=== PATIENT | male | born 1950 | race Caucasian/White ===

== ENCOUNTER 2018-02-06 09:44 | Day surgery (SDC) | payer OTHER ==
[~2018-02-06] VITALS: Ht 188 cm; Wt 118.0 kg
[~2018-02-06 09:44] MED LIST: ALBU90OI6 INH; ASPI325; ATOR40TA PO; CARB200ER PO; CLOP75 PO; Flomax0.4 MG PO; Hydrocodone-Ap1 EA20 PO; METO25ER PO; Norco 10-325 T1 EACH PO; PANT40 PO; Protonix40 MG PO; RANI150EL PO; Ranitidine HCl300 M1 PO; TAMS.4ER PO
== END 2018-02-06 22:35 | disposition home or self-care (01) ==
LOC: MHTC 09:44 → ICUW 14:53 → ICUE 15:34 → MHTC 22:35
PROC: 037Y3DZ Dilation of Upper Artery with Intraluminal Device, Percutaneous Approach (ICD-10-PCS; principal; 2018-02-06)
DX: T82.856A Stenosis of peripheral vascular stent, initial encounter (principal); I70.218 Atherosclerosis of native arteries of extremities with intermittent claudication, other extremity; I70.92 Chronic total occlusion of artery of the extremities
CPT/HCPCS: 36221; 37236; 75710; 76937; 85347; 99152; 99153; C1725; C1769; C1876; C1887; C1894; J1644; J2250; J2270; J2720; J3010; J7030; J7040; Q9967

== ENCOUNTER 2021-02-03 16:29 | Emergency (ER) | payer OTHER ==
[~2021-02-03] VITALS: Ht 188 cm; Wt 129.3 kg
[~2021-02-03 16:29] MED LIST changes: +ALFU10; +Aspir 8181 MG PO; +FINA5 PO
[2021-02-03 17:42] LABS: BASOPHILS ABSOLUTE AUTO 0.02 K/mm3 (0.00-0.23); BASOPHILS PERCENT AUTO 1 % (0-2); EOSINOPHILS PERCENT AUTO 3 % (0-6); Hematocrit 41.3 % (37.0-53.0); Hemoglobin 14.4 g/dL (13.5-17.5); IMMATURE GRAN ABSOLUTE AUTO 0.01 K/mm3 (0.00-0.10); IMMATURE GRAN PERCENT AUTO 0 % (0-1); LYMPHOCYTES ABSOLUTE AUTO 1.02 K/mm3 (0.84-5.20); LYMPHOCYTES PERCENT AUTO 28 % (21-46); MONOCYTES ABSOLUTE AUTO 0.38 K/mm3 (0.16-1.47); MONOCYTES PERCENT AUTO 11 % (4-13); Mean Corpuscular HGB 32.7 pg (26.0-34.0); Mean Corpuscular HGB Conc 34.9 g/dL (31.5-36.5); Mean Corpuscular Volume 94 fL (80-100); Mean Platelet Volume 9.7 fL (9.1-12.4); NEUTROPHILS ABSOLUTE AUTO 2.08 K/mm3 (1.96-9.15); NEUTROPHILS PERCENT AUTO 58 % (41-73); Platelet Count 159 K/mm3 (150-400); RDW Coefficient Variation 13.6 % (11.7-14.2); RDW Standard Deviation 46.6 fL (35.1-46.3); Red Blood Cell Count 4.41 M/mm3 (4.30-5.90); White Blood Cell Count 3.61 K/mm3 (4.00-11.30)
[2021-02-03 17:58] LABS: Alanine Aminotransfer (ALT/SGP 92 U/L (12-78); Albumin/Globulin Ratio 1.3 (0.8-1.8); Alk Phos 55 U/L (50-136); Anion Gap 8 mmol/L (6-16); Aspartate Aminotrans (AST/SGOT 59 U/L (12-37); Bilirubin, Total 0.4 mg/dL (0.1-1.0); Blood Urea Nitrogen 17 mg/dL (8-24); Bun/Creatinine Ratio 16.8 (12.0-20.0); CO2, Blood 24 mmol/L (21-32); Calcium, Blood 8.7 mg/dL (8.5-10.1); Chloride, Blood 103 mmol/L (98-108); Creatinine, Blood 1.01 mg/dL (0.60-1.20); Glomerular Filtration Rate >60 (60-); Glucose, Blood 112 mg/dL (70-99); Potassium, Blood 4.2 mmol/L (3.5-5.5); Sodium, Blood 135 mmol/L (136-145); Troponin I <0.015 ng/mL (0.000-0.040)
== END 2021-02-03 18:28 | disposition home or self-care (01) ==
LOC: ER 16:29
PROVIDERS: Emergency Medicine
DX: R07.89 Other chest pain (principal); R06.02 Shortness of breath; R11.0 Nausea; R20.0 Anesthesia of skin; E78.00 Pure hypercholesterolemia, unspecified; I25.10 Atherosclerotic heart disease of native coronary artery without angina pectoris; E11.9 Type 2 diabetes mellitus without complications; F17.210 Nicotine dependence, cigarettes, uncomplicated; Z88.0 Allergy status to penicillin; Z79.899 Other long term (current) drug therapy; Z85.46 Personal history of malignant neoplasm of prostate; Z95.5 Presence of coronary angioplasty implant and graft
CPT/HCPCS: 36415; 71045; 80053; 84484; 85025; 93005; 93010; 99285-25; A9270

== ENCOUNTER 2021-10-08 22:46 | Emergency (ER) | payer OTHER ==
[~2021-10-08] VITALS: Ht 188 cm; Wt 111.1 kg
== END 2021-10-09 02:31 | disposition home or self-care (01) ==
LOC: ER 22:46
DX: T84.020A Dislocation of internal right hip prosthesis, initial encounter (principal); W18.12XA Fall from or off toilet with subsequent striking against object, initial encounter; Z88.0 Allergy status to penicillin; Z79.899 Other long term (current) drug therapy; E78.5 Hyperlipidemia, unspecified; E11.9 Type 2 diabetes mellitus without complications; J44.9 Chronic obstructive pulmonary disease, unspecified; F17.210 Nicotine dependence, cigarettes, uncomplicated
CPT/HCPCS: 27250; 27266; 73502; 73590; 96374; 96375; 99152; 99284-25; A9270; J1170; J2405; J2704; J7030

== ENCOUNTER 2023-05-28 11:30 | Emergency (ER) | payer OTHER ==
[~2023-05-28] VITALS: Ht 188 cm; Wt 120.2 kg
[2023-05-28 11:32] VITALS: BP 126/79
== END 2023-05-28 11:51 | disposition home or self-care (01) ==
LOC: ER 11:30
DX: T83.031A Leakage of indwelling urethral catheter, initial encounter (principal); Y84.6 Urinary catheterization as the cause of abnormal reaction of the patient, or of later complication, without mention of misadventure at the time of the procedure; F17.210 Nicotine dependence, cigarettes, uncomplicated; Z88.0 Allergy status to penicillin; Z79.899 Other long term (current) drug therapy
CPT/HCPCS: 99283

== ENCOUNTER 2023-12-13 12:17 | Inpatient (IN) | payer OTHER ==
[2023-12-13] VITALS (8 sets, daily range): BP systolic 99–122; BP diastolic 65–92
[~2023-12-13] VITALS: Ht 188 cm; Wt 120.8 kg
[~2023-12-13 12:17] MED LIST changes: -ALFU10; +ALFU10 PO
[2023-12-13 12:35] LABS: BASOPHILS ABSOLUTE AUTO 0.02 K/mm3 (0.00-0.23); BASOPHILS PERCENT AUTO 0 % (0-2); EOSINOPHILS PERCENT AUTO 0 % (0-6); Hematocrit 37.2 % (37.0-53.0); Hemoglobin 12.7 g/dL (13.5-17.5); IMMATURE GRAN ABSOLUTE AUTO 0.02 K/mm3 (0.00-0.10); IMMATURE GRAN PERCENT AUTO 0 % (0-1); LYMPHOCYTES ABSOLUTE AUTO 0.68 K/mm3 (0.84-5.20); LYMPHOCYTES PERCENT AUTO 12 % (21-46); MONOCYTES ABSOLUTE AUTO 0.58 K/mm3 (0.16-1.47); MONOCYTES PERCENT AUTO 10 % (4-13); Mean Corpuscular HGB 31.9 pg (26.0-34.0); Mean Corpuscular HGB Conc 34.1 g/dL (31.5-36.5); Mean Corpuscular Volume 94 fL (80-100); Mean Platelet Volume 9.6 fL (9.1-12.4); NEUTROPHILS ABSOLUTE AUTO 4.38 K/mm3 (1.96-9.15); NEUTROPHILS PERCENT AUTO 77 % (41-73); Platelet Count 165 K/mm3 (150-400); RDW Coefficient Variation 13.4 % (11.7-14.2); RDW Standard Deviation 46.1 fL (35.1-46.3); Red Blood Cell Count 3.98 M/mm3 (4.30-5.90); White Blood Cell Count 5.68 K/mm3 (4.00-11.30)
[2023-12-13] MEDS ORDERED: Diltiazem HCl 5 MG / ML 5ML Vial IV ONE ×2 (12:40→13:10)
[2023-12-13] MEDS ORDERED: FOLI1 PO (12:57)
[2023-12-13] MEDS ORDERED: ALBU2.5V5 INH (12:57)
[2023-12-13] MEDS ORDERED: PANT20 PO (12:57)
[2023-12-13] MEDS ORDERED: ALOGLIPTIN6.25 M1 PO (12:57)
[2023-12-13] MEDS ORDERED: METF500 PO (12:58)
[2023-12-13] MEDS ORDERED: FLUT1DIS5 (12:58)
[2023-12-13] MEDS ORDERED: Cyclobenzaprine5 MG (12:58)
[2023-12-13] MEDS ORDERED: B12-FOLIC ACID1 EACH PO (12:58)
[2023-12-13] MEDS ORDERED: BASAGLAR K100 UNIT/1 SC (12:59)
[2023-12-13 13:11] LABS: Albumin, Blood 3.4 g/dL (3.4-5.0); Albumin/Globulin Ratio 0.9 (0.8-1.8); Bilirubin, Total 0.6 mg/dL (0.1-1.0); Bun/Creatinine Ratio 15.3 (12.0-20.0); Calcium, Blood 9.1 mg/dL (8.5-10.1); Creatinine, Blood 1.11 mg/dL (0.60-1.20); Globulin, Blood 3.6 g/dL (2.2-4.0); Potassium, Blood 4.1 mmol/L (3.5-5.5)
[2023-12-13] MEDS ORDERED: dilTIAZem HCL 125 MG in Dextrose 5% 100 ML IV SCH (14:15)
[2023-12-13 14:31] LABS: Influenza A, PCR NEGATIVE (NEGATIVE); Influenza B, PCR NEGATIVE (NEGATIVE); Resp Syncytial Virus, PCR NEGATIVE (NEGATIVE)
[2023-12-13 14:32] LABS: SARS-Cov-2 (COVID-19) PCR, MMC POSITIVE (NEGATIVE)
[2023-12-13] MEDS ORDERED: Acetaminophen 325 MG TABLET PO PRN (14:40)
[2023-12-13] MEDS ORDERED: Furosemide 10 MG/ML 4ML Vial IV SCH (15:00)
[2023-12-13] MEDS ORDERED: Remdesivir (EUA) 200 MG in NS 250 ML IV ONE (15:15)
[2023-12-13] MEDS ORDERED: Albuterol 2.5 MG/3 ML VIAL INH PRN (15:20)
[2023-12-13] MEDS ORDERED: Metoprolol Succinate 25 MG TABCR PO SCH (16:00)
[2023-12-13] MEDS ORDERED: Dexamethasone Sod Phos 10 MG/ML 1ML VIAL IV SCH (16:00)
[2023-12-13] MEDS ORDERED: Insulin Human Lispro 100 Units/ML 3ML Syringe SC SCH (16:30)
[2023-12-13] MEDS ORDERED: Apixaban 5 MG Tab PO SCH (21:00)
[2023-12-13] MEDS ORDERED: Insulin Glargine-Yfgn 100 Unit/mL 3 ML SYR SC SCH ×2 (21:00)
[2023-12-14] VITALS (15 sets, daily range): BP systolic 99–141; BP diastolic 65–96
[2023-12-14] MEDS ORDERED: CELE100 PO (00:15)
[2023-12-14] MEDS ORDERED: Percocet 5-3251 EACH PO (00:15)
[2023-12-14] MEDS ORDERED: OCUFLOX511 (00:19)
[2023-12-14] MEDS ORDERED: PREDNISOLONE ACE5 ML (00:19)
[2023-12-14] MEDS ORDERED: KETO.5OPSO (00:20)
[2023-12-14] MEDS ORDERED: TRAM50 PO (00:27)
[2023-12-14] MEDS ORDERED: DOC250 PO (00:33)
[2023-12-14] MEDS ORDERED: METAMUCIL POWD798 GM PO (00:33)
[2023-12-14] MEDS ORDERED: INSULIN AS100 UNIT/8 SC (00:34)
[2023-12-14 00:54] LABS: Base Excess Venous 1.1 mmol/L; Bicarbonate Venous 25.3 mmol/L (24.0-30.0); PCO2 Venous 39.3 mmHg (38-42); pH Blood Venous 7.42 (7.34-7.37)
[2023-12-14 01:18] LABS: Bun/Creatinine Ratio 21.1 (12.0-20.0); Calcium, Blood 8.6 mg/dL (8.5-10.1); Creatinine, Blood 1.14 mg/dL (0.60-1.20); Potassium, Blood 4.2 mmol/L (3.5-5.5)
--- NOTE | 2023-12-14 03:22 | NUR ---
2009 Pt arrived to unit from ED via jaja with RN in attendance. Ambulated with min assist to bed in roon 4. Oriented to room and unit per unit standards. Pt unsure of current medications, though brought in medications and believes them to be up to date. [facility]. Pt continues in Atrial fib, rate controlled when pt is resting though will jump into RVR with any activity. Continue to reinforce need to decrease activity. Bed alarm in use and will place Avasure camera for safety. Dilt gtt at 15mg/hr, VSS.
[2023-12-14] MEDS ORDERED: Pantoprazole Sodium 20 MG Tab PO SCH (06:00)
[2023-12-14] MEDS ORDERED: Metoprolol Tartrate 25 MG Tab PO ONE ×2 (08:40→21:30)
[2023-12-14] MEDS ORDERED: Vitamin B Complex 1 EA Softgel PO SCH (09:00)
[2023-12-14] MEDS ORDERED: Finasteride 5 MG Tab PO SCH (09:00)
[2023-12-14] MEDS ORDERED: Tamsulosin HCl 0.4 MG Cap PO SCH (09:00)
[2023-12-14] MEDS ORDERED: Metoprolol Succinate 50 MG TABCR PO SCH ×2 (09:00→22:00)
[2023-12-14] MEDS ORDERED: Folic Acid 1 MG TAB PO SCH (09:00)
[2023-12-14] MEDS ORDERED: Remdesivir (EUA) 100 MG in NS 250 ML IV SCH (12:00)
--- NOTE | 2023-12-14 18:45 | NUR ---
SHIFT SUMMARY PT A/OX3-4 AND COOPERATIVE WITH MOST CARE. PT ABLE TO EXPRESS NEEDS WHEN STAFF IS PRESENT BUT IS NOT FOLLOWING INSTRUCTIONS OF USING CALL LIGHT FOR ASSISTANCE. SITTER OUTSIDE OF ROOM ALERTS STAFF FOR ASSISTANCE. PT HR REMAINED AFIB BUT RATE HAS IMPROVED. DILT GTT ON STANDBY AT 1415. OTHER VSS THROUGHOUT SHIFT WITH 02 SATS IN THE 90'S ON 4 L NC. PT REPORTS "I FEEL LIKE I CAN'T CATCH MY BREATH SOMETIMES." THIS REMARK IS USUALLY AFTER PT WAS UP IN ROOM. PT USING URINAL AT BEDSIDE. PT FREQUENTLY REQUESTING TO HAVE BSC PLACED NEAR BED SO THAT HE CAN JUST GO TI THE COMMODE ON HIS OWN WHEN HE WANTS. PT EDUCATED THAT HE IS A FALL RISK AND INSTRUCTED TO USE CALL LIGHT FOR ASSISTANCE.
[2023-12-15 00:57] VITALS: BP 112/81
[2023-12-15 04:36] VITALS: BP 119/91
[2023-12-15 05:08] LABS: Bun/Creatinine Ratio 26.1 (12.0-20.0); Creatinine, Blood 1.11 mg/dL (0.60-1.20)
--- NOTE | 2023-12-15 05:21 | NUR ---
1915 Assumed care of pt, bedside report completed. Shift plan of care reviewed with pt, all questions answered. Pt with uneventful shift tonight. Call to MD early in shift to report uncontrolled HR. Additional dose of Lopressor 25mg PO x 1 and primary MD changed Toprol XL to BID. HR better this AM, low 100s at rest, up to 120s with activity. Pt does report feeling subjectively better this morning than yesterday AM. Non Clinical sitter has remained outside of room per hospital policy. Please see full assessment for additional details. No further complaints or concerns at this time, will continue to monitor.
[2023-12-15] MEDS ORDERED: Metoprolol Tartrate 1 MG/ML 5 ML VIAL IV ONE (08:00)
[2023-12-15] MEDS ORDERED: Metoprolol Tartrate 1 MG/ML 5 ML VIAL IV PRN (08:00)
[2023-12-15] MEDS ORDERED: Torsemide 10 MG TAB PO SCH (09:00)
[2023-12-15] MEDS ORDERED: Metoprolol Succinate 50 MG TABCR PO SCH (09:00)
[2023-12-15] MEDS ORDERED: Empagliflozin 10 MG TAB PO SCH (09:00)
[2023-12-15 11:57] VITALS: BP 112/89
--- NOTE | 2023-12-15 15:49 | NUR ---
PT HR CONTINUES TO BE TACHY. 110-120 AT REST AND 120-150 WHEN UP. PT UP TO C MULTOPLE TIMES DUE TO FREQUENT SMALL URINATIONS. PT GIVEN LOPRESSOR PUSHES PER ORDER WITH LITTLE EFFECT. MD NOTIFIED. FLOMX SWITCHED FROM DAILY TO TWICE DAILY. PT PROVIDED CONDOM CATH TO HELP PT ATTEMPT TO REST WHILE IN BED PER MD ORDER. PT BLADDER SCANNED AFTER ELIMINATION, NO URINE NOTED.
[2023-12-15 16:38] VITALS: BP 117/89
--- NOTE | 2023-12-15 17:15 | NUR ---
SHIFT SUMMARY PT A/OX4. PT COOPERATED BETTER WITH STAFF BUT STILL HAS PERIODS OF GETTING UP ON HIS OWN WITHOUT CALLING. PT'S HR GRADUALLY INCREASED DUE TO PT GETTING UP FREQUENTLY TO URINATE. PT PROVIDED CONDOM CATH PER MD REQUEST AND PT INSTRUCTED TO STAY IN BED MORE TO IMPROVE HR, PT AGREEABLE AT THIS TIME. PT RECIEVED 2 DOSES OF IV LOPRESSOR PER ORDER FOR ASSISTANCE WITH RATE CONTROL AND PO METOPROLOL INCREASED, SEE EMAR. OTHER VSS THROUGHOUT SHIFT WITH O2 SATS IN THE 90'S ON 4L NC. NO REPORT OF CHEST PAIN/PRESSURE. PT CONTINUES TO ENDORSE SOB, PT EDUCATED ON HIS LOW EF, AFIB WITH INCREASED RATE AND COVID ARE ALL CAUSING HIS SYMPTOMS. FLOMAX FREQUENCY INCREASED TO BID. PT'S SONS CALLED AND UPDATED ON PT'S CURRENT STATUS.
[2023-12-15 20:02] VITALS: BP 106/68
[2023-12-15] MEDS ORDERED: Tamsulosin HCl 0.4 MG Cap PO SCH (21:00)
[2023-12-15 23:45] VITALS: BP 116/89
[2023-12-16 03:50] VITALS: BP 115/65
[2023-12-16 04:28] LABS: Hematocrit 39.8 % (37.0-53.0); Hemoglobin 13.5 g/dL (13.5-17.5); Mean Corpuscular HGB 32.1 pg (26.0-34.0); Mean Corpuscular HGB Conc 33.9 g/dL (31.5-36.5); Mean Corpuscular Volume 95 fL (80-100); Mean Platelet Volume 10.2 fL (9.1-12.4); Platelet Count 227 K/mm3 (150-400); RDW Coefficient Variation 13.1 % (11.7-14.2); RDW Standard Deviation 44.9 fL (35.1-46.3); Red Blood Cell Count 4.21 M/mm3 (4.30-5.90); White Blood Cell Count 10.32 K/mm3 (4.00-11.30)
[2023-12-16 04:51] LABS: Bun/Creatinine Ratio 34.5 (12.0-20.0); Calcium, Blood 9.4 mg/dL (8.5-10.1); Creatinine, Blood 1.19 mg/dL (0.60-1.20); Potassium, Blood 4.1 mmol/L (3.5-5.5)
--- NOTE | 2023-12-16 05:55 | NUR ---
1915 Assumed care of pt, tony report completed. Shift plan of caer reviewed with pt, all questions answered. 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 HR slowly becoming more controlled, and other VSS thoughout shift. Pt has remained A&O x 4, complaint with care. Please see full assessment for additional details. No further complaints or concerns at this time, will continue to monitor.
[2023-12-16 07:45] VITALS: BP 137/69
[2023-12-16] MEDS ORDERED: Sacubitril/Valsartan 24 MG-26 MG Tab PO SCH (09:00)
[2023-12-16] MEDS ORDERED: Metoprolol Succinate 50 MG TABCR PO SCH (09:00)
--- NOTE | 2023-12-16 11:08 | NUR ---
1020, PT INFOMRED FRUIT RAISER THAT HE WNATED TO LEAVE. FRUIT RAISER INFORMED THIS RN OF PT'S REMARKS. THIS RN TO PT'S ROOM. PT STATED THAT HE "CAN NO LONGER JUST SIT HERE. I NEED TO GET OUT OF HERE." THIS RN INFORMED PT THAT HIS BREATHING HAS STILL BEEN AN ISSUE DUE O COVID AND THAT HIS HR WAS IN THE 170'S AT THE TIME OF THE CONVERSATION. PT ALSO INFORMED THAT HIS EF WAS REALLY LOW AND EDUCATED THAT WITH THE LOW EF, HIS HEART WAS NOT FUNCTIONING WELL. PT STATED "THATS FINE. I WILL JUST GO HOME AND REST JUST LIKE I AM HERE. I JUST CANNOT BE HERE ANYMORE." THIS RN ASKED IF PT WAS FEELING CABIN FEVER FROM BEING STUCK IN HIS ROOM. PT STATED "YEAH, I JUST HAVE TO GET OUT." THIS RN OFFERED TO ALLOW PT TO WEAR A MASK AND GO OUTSIDEFOR FEW MINUTES. PT STATED "WELL I WILL JUST GO TO GET SOME ICE CREAM OR COFFEE WITH SON AND JUST COME BACK." THIS RN INFORMED PT THAT HE COULD NOT LEAVE AND COME BACK BECAUSE THAT WOULD REQUIRE HIM TO LEAVE AMA AND BE READMITTED. PT STATES "OH SHIT, WELL I'M JUST GOING TO LEAVE THEN. I ALREADY CALLED MY SON TO GET ME AT 12:00." THIS RN ASKED IF HE WOULD LIKE TO SPEAK WITH THE DOCTOR, PT ANSWERED "YES." MD NOTIFIED AND CAME TO PT ROOM. PT EXPRESSED CONCERNS AND EDUCATED PT ON TREATMENT THAT PT STILL NEEDED. PT CONTINUED TO STATE THAT HE WANTED TO LEAVE. PT ASKED HOW HE WOULD GET OXYGEN, PT STATED "[facility] NOTIFIED PT THAT HE CAN SEND PT HOME WITH HARD SCRIPTS BUT COULD NOT SEND PHARMACY REQUESTS OUT THOUGH PT WAS BEING DISCHARGED. PT INFORMED THAT HE WOULD NEED A HOME O2 EVAL TO SEE HOW MUCH OXYGEN HE WOULD NEED TO HAVE INSURANCE COVER THE COSTS. PT STATED "NO I CAN JUST BUY OR RENT IT." PT INFORMED THAT HE WOULD NEED A MD TO STILL ORDER IT. MD INFORMED PT THAT HE COULD ORDER THE O2 IF PT COULD PAY OUT OF POCKET FOR TANKS SINCE PT DID NOT WANT TO PERFORM HOME O2 EVAL. HARD SCRIPTS PROVIDED BY . OXYGEN ORDERED BY [employer].
--- NOTE | 2023-12-16 11:48 | NUR ---
AMA DISCHARGE PT PROVIDED HARD SCRIPTS AT TIME OF DISCHARGE. O2 DELIVERED TO PT IN HIS ROOM. PT'S SON RACHANA PRESENT TO GET PT AT 1140. PT DISCHARGED AT 1145. PT INSTRUCTED TO GIVE [facility] OT [facility] AND TO FOLLOW UP WITH PCP. PT VERBALIZED UNDERSTANDING.
== END 2023-12-16 12:12 | disposition left against medical advice (07) | DRG 177 ==
LOC: ER 12:17 → PCU 19:40
PROVIDERS: Emergency Medicine; Family Medicine Adult Medicine; ADMIT Internal Medicine
PROC: XW033E5 Introduction of Remdesivir Anti-infective into Peripheral Vein, Percutaneous Approach, New Technology Group 5 (ICD-10-PCS; principal; 2023-12-13)
PROC: 3E0333Z Introduction of Anti-inflammatory into Peripheral Vein, Percutaneous Approach (ICD-10-PCS; 2023-12-13)
DX: U07.1 COVID-19 (principal); I50.21 Acute systolic (congestive) heart failure; J12.82 Pneumonia due to coronavirus disease 2019; J96.01 Acute respiratory failure with hypoxia; J44.0 Chronic obstructive pulmonary disease with (acute) lower respiratory infection; I25.10 Atherosclerotic heart disease of native coronary artery without angina pectoris; I11.0 Hypertensive heart disease with heart failure; E11.9 Type 2 diabetes mellitus without complications; I48.91 Unspecified atrial fibrillation; E78.5 Hyperlipidemia, unspecified; C61 Malignant neoplasm of prostate; F17.210 Nicotine dependence, cigarettes, uncomplicated; H91.90 Unspecified hearing loss, unspecified ear; Z53.29 Procedure and treatment not carried out because of patient's decision for other reasons; Z88.0 Allergy status to penicillin; Z79.51 Long term (current) use of inhaled steroids; Z79.84 Long term (current) use of oral hypoglycemic drugs; Z79.4 Long term (current) use of insulin; Z95.5 Presence of coronary angioplasty implant and graft
CPT/HCPCS: 0241U; 36415; 71046; 80048; 80053; 82803; 82947; 83690; 83880; 84443; 84484; 85025; 85027; 93005; 93010; 93306; 94640; 94664; 94760; 94762; 96365; 96366; 96375; 96376; 99285-25; A9270; C9113; G0378; J0248; J1100; J1815; J1940; J7050

== ENCOUNTER 2023-12-31 12:25 | Inpatient (IN) | payer OTHER ==
[2023-12-31] VITALS (7 sets, daily range): BP systolic 112–137; BP diastolic 69–99
[~2023-12-31] VITALS: Ht 182.9 cm; Wt 116.7 kg
[~2023-12-31 12:25] MED LIST changes: +ALBU2.5V5 INH; +ALOGLIPTIN6.25 M1 PO; +B12-FOLIC ACID1 EACH PO; +BASAGLAR K100 UNIT/1 SC; +CELE100 PO; +Cyclobenzaprine5 MG; +DOC250 PO; +FLUT1DIS5 INH; +FOLI1 PO; +INSULIN AS100 UNIT/8 SC; +KETO.5OPSO; +METAMUCIL POWD798 GM PO; +METF500 PO; +METO100ER PO; +OCUFLOX511; +PANT20 PO; +PREDNISOLONE ACE5 ML; +Percocet 5-3251 EACH PO; +TRAM50 PO
[2023-12-31] MEDS ORDERED: MethylPREDNISolone Sod Succ 125 MG Vial IV ONE (12:35)
[2023-12-31] MEDS ORDERED: Ipratropium/Albuterol SulF 2.5-0.5MG/3 ML Amp INH ONE (12:35)
[2023-12-31] MEDS ORDERED: LORazepam 2 MG/ML 1ML Injection IV ONE ×2 (12:35→21:50)
[2023-12-31 12:44] LABS: BASOPHILS ABSOLUTE AUTO 0.04 K/mm3 (0.00-0.23); BASOPHILS PERCENT AUTO 0 % (0-2); EOSINOPHILS ABSOLUTE AUTO 0.08 K/mm3 (0.00-0.68); EOSINOPHILS PERCENT AUTO 1 % (0-6); Hemoglobin 12.5 g/dL (13.5-17.5); IMMATURE GRAN ABSOLUTE AUTO 0.05 K/mm3 (0.00-0.10); IMMATURE GRAN PERCENT AUTO 0 % (0-1); LYMPHOCYTES ABSOLUTE AUTO 1.55 K/mm3 (0.84-5.20); LYMPHOCYTES PERCENT AUTO 14 % (21-46); MONOCYTES ABSOLUTE AUTO 0.67 K/mm3 (0.16-1.47); MONOCYTES PERCENT AUTO 6 % (4-13); Mean Corpuscular HGB 31.2 pg (26.0-34.0); Mean Corpuscular HGB Conc 32.1 g/dL (31.5-36.5); Mean Corpuscular Volume 97 fL (80-100); Mean Platelet Volume 9.7 fL (9.1-12.4); NEUTROPHILS ABSOLUTE AUTO 9.03 K/mm3 (1.96-9.15); NEUTROPHILS PERCENT AUTO 79 % (41-73); Platelet Count 309 K/mm3 (150-400); RDW Coefficient Variation 13.4 % (11.7-14.2); Red Blood Cell Count 4.01 M/mm3 (4.30-5.90); White Blood Cell Count 11.42 K/mm3 (4.00-11.30)
[2023-12-31 12:45] LABS: pH Blood Venous 7.32 (7.34-7.37)
[2023-12-31 12:46] LABS: Base Excess Venous 0.3 mmol/L; PCO2 Venous 50.9 mmHg (38-42)
[2023-12-31 13:08] LABS: Albumin, Blood 3.3 g/dL (3.4-5.0); Albumin/Globulin Ratio 0.8 (0.8-1.8); Bilirubin, Total 0.7 mg/dL (0.1-1.0); Bun/Creatinine Ratio 16.4 (12.0-20.0); Calcium, Blood 8.6 mg/dL (8.5-10.1); Creatinine, Blood 1.1 mg/dL (0.60-1.20); Globulin, Blood 4.3 g/dL (2.2-4.0); Potassium, Blood 5.3 mmol/L (3.5-5.5); Total Protein, Blood 7.6 g/dL (6.4-8.2)
[2023-12-31 13:34] LABS: Influenza A, PCR NEGATIVE (NEGATIVE); Influenza B, PCR NEGATIVE (NEGATIVE); Resp Syncytial Virus, PCR NEGATIVE (NEGATIVE); SARS-Cov-2 (COVID-19) PCR, MMC NEGATIVE (NEGATIVE)
[2023-12-31] MEDS ORDERED: CefTRIAXone Sodium 1,000 MG in NS 50 ML IV ONE (13:50)
[2023-12-31] MEDS ORDERED: Metoprolol Tartrate 1 MG/ML 5 ML VIAL IV ONE ×2 (13:50→17:00)
[2023-12-31] MEDS ORDERED: Furosemide 10 MG/ML 4ML Vial IV ONE (13:50)
[2023-12-31] MEDS ORDERED: LORazepam 0.5 MG Tab PO PRN (14:35)
[2023-12-31] MEDS ORDERED: Acetaminophen 325 MG TABLET PO PRN (14:35)
[2023-12-31] MEDS ORDERED: Metoprolol Tartrate 1 MG/ML 5 ML VIAL IV PRN (14:40)
[2023-12-31] MEDS ORDERED: Insulin Human Lispro 100 Units/ML 3ML Syringe SC SCH (16:30)
[2023-12-31] MEDS ORDERED: Ipratropium/Albuterol SulF 2.5-0.5MG/3 ML Amp INH SCH (16:50)
[2023-12-31] MEDS ORDERED: Furosemide 10 MG/ML 4ML Vial IV SCH (18:00)
[2023-12-31] MEDS ORDERED: Diltiazem HCl 5 MG / ML 5ML Vial IV ONE (18:50)
--- NOTE | 2023-12-31 19:02 | NUR ---
PT ARRIVED IN THE ROOM FROM [facility] ABLE TO STAND AND TRANSFER TO PCU BED SBA. PT ON 4L OF O2 UPON ARRIVAL SATS ABOVE 93%, HRR AFIB RATE 130-150'S, SBP 120-130'S, AFEBRILE. BIPAP AT BEDSIDE PT WAS ENCOURAGED TO WEAR PT AGREED TO PUT IT ON AFTER EATING DINNER. PT STARTING TO GET CONFUSED, SETTING BED ALARM OFF COUPLE TIMES WANTING TO GO FOR A WALK OUTSIDE. PT WAS REDIRECTED TO BED OFFERED SNACK AND A FAN. PT WAS GIVEN METOPRLOL PUSH 5MG IV ONE TIME WITH NO EFFECT THEN CARDIZEM PUSH 10MG STILL NO EFFECT, DR KNOX ORDERED TO START CARDIZEM GTT PT IS NOT ANTICOAGULATED AT THIS TIME. PT NOW IN BED RESTING, CONDOM CATH IN PLACE CALL LIGHTS IN REACH WILL REPORT TO ONCOMING SHIFT
[2023-12-31] MEDS ORDERED: dilTIAZem HCL 125 MG in Dextrose 5% 100 ML IV SCH (19:15)
[2023-12-31] MEDS ORDERED: Nicotine 21 MG PATCH TOP SCH (21:00)
--- NOTE | 2023-12-31 22:31 | NUR ---
AT ABOUT ~2215, PT WAS ASSISTED TO BATHROOM WITH HELP FROM STAFF. AFTER LEAVING BATHROOM SMELL OF CIGARETTE WAS NOTED. PT INITIALLY DENIED LIGHTING CIGARETTE IN BATHROOM BUT AGREED TO STAFF LOOKING THROUGH PERSONAL BELONGINGS FOR CIGARETTE+SUPERVISOR PLATING AND POINT ASSEMBLY. BOTH OF WHICH WERE FOUND AND PT THEN ADMITTED TO LIGHTING CIGARETTE BUT CLAIMED TO HAVE PUT IT OUT AND FLUSHED IT BEFORE SMOKING IT. RE-EDUCATED ON RISK ASSOCIATED, LOCKED PARAPHANELIA IN DRAWER. NURSING DIRECTOR UTILIZATION MANAGEMENT JAZMIN SOLANO SPOKE WITH PT AND INFORMED THAT HE WILL NOW NEED TO HAVE 1:1 SITTER THROUGHOUT REST OF STAY. STAFF HAS BEEN WITH PATIENT SINCE THIS HAPPENED AWAITING ARRIVAL OF SITTER. MONITORING CLOSELY.
[2024-01-01] VITALS (14 sets, daily range): BP systolic 100–142; BP diastolic 62–91
--- NOTE | 2024-01-01 05:14 | NUR ---
SHIFT SUMMARY. SHIFT HAS BEEN MOSTLY UNREMARKABLE OUTSIDE OF PT LIGHTING A CIGARETTE IN ROOM EARLY IN SHIFT. SEE RELATED NOTE FOR DETAILS. SINCE THAT TIME PT HAS BEEN ABLE TO SLEEP THROUGH MOST OF SHIFT, TOLERATING BIPAP INTERMITTENTLY. ESTIMATED THAT PT HAS BEEN ABLE TO TOLERATE BIPAP FOR MORE THAN HALF OF THIS SHIFT BUT REQUESTS FREQUENT BREAKS. HAVE HAD TO REEDUCATE ON INDICATION FOR BIPAP SEVERAL TIMES THROUGHOUT SHIFT. WHEN TAKING BREAKS, PT MAINTAINS ADEQUATE SATURATION ON 4-6 L O2 VIA NC. CONDOM CATH IN PLACE THROUGHOUT SHIFT, URINE OUTPUT HAS BEEN CONSISTENT AND CHARTED APPROPRIATELY. TELE ON THROUGHOUT SHIFT WITH NO ACUTE CHANGES OR EVENTS. 1:[address] SINCE CIGARETTE INCIDENT. BED LOCKED IN LOWEST POSITION. CALL LIGHT LEFT WITHIN REACH. CONTINUING TO MONITOR.
[2024-01-01] MEDS ORDERED: Metoprolol Succinate 50 MG TABCR PO SCH (08:00)
[2024-01-01] MEDS ORDERED: GuaiFENesin 600 MG TabCR PO SCH (08:40)
[2024-01-01] MEDS ORDERED: PredniSONE 20 MG Tab PO SCH (09:00)
[2024-01-01] MEDS ORDERED: Apixaban 5 MG Tab PO SCH (09:00)
[2024-01-01] MEDS ORDERED: Enoxaparin 40 MG/0.4 ML SYR SC SCH (09:00)
[2024-01-01] MEDS ORDERED: CefTRIAXone Sodium 1,000 MG in NS 100 ML IV SCH (09:00)
[2024-01-01] MEDS ORDERED: Empagliflozin 10 MG TAB PO SCH (09:00)
[2024-01-01] MEDS ORDERED: Mometasone/Formoterol MDI 200/5 mcg 13 GM INH SCH (11:45)
[2024-01-01] MEDS ORDERED: Ipratropium/Albuterol SulF 2.5-0.5MG/3 ML Amp INH SCH (11:50)
--- NOTE | 2024-01-01 12:08 | NUR ---
AM NOTES; PT THREW UP THIS MORNING AFTER EATING BREAKFAST WHILE GETTING BREATHING TX. THIS RN WAS IN THE ROOM WHILE PT IS EATING BREAKFAST, PT ATE AND DRANK COFFEE FAST, PT WAS INSTRUCTED TO SLOW DOWN ON DRINKING FLUIDS, PT DENIES ANY NAUSEA/ABD PAIN PRIOR TO EMESIS. PT STATED IT JUST ALL WENT BACK UP. EMESIS CONTAINS MOSTLY FLUID PROBABLY COFFEE. PT ALSO HAS BEEN COUGHING UP WOLFF COLORED SPUTUM. PT WAS GIVEN FLUTTER VALVE AND STARTED ON MUCINEX. PT CONTINUES TO DIURESE MULTIPLE FAILED CONDOM CATH ALL T/O NIGHT PT ENCOURAGED USE OF URINAL PT WAS AGREEABLE. BREATHING TX PER RT. BIPAP ON STANDBY REFUSED TO WEAR THIS MORNING PT WAS MOSTLY AWAKE. 1;1 SITTER D/T HIGH RISK SMOKER. VITALS HRR 100-130'S METOPROLOL HOME DOSE WAS GIVEN THIS MORNING PT REMAINS ON 5 MG/HR CARDIZEM GTT PT ALSO STARTED ON ELIQUIS 5MG, SBP 100-130'S, SATS ABOVE 93% ON 4L OF O2, AFEBRILE. NO OTHER ENCOUNTERED AT THIS TIME. WILL CONTINUE TO MONITOR
--- NOTE | 2024-01-01 18:47 | NUR ---
PT SUMMARY; SEE PREVIOUS NOTES; PT COMPLIANT WITH USE OF BIPAP WHEN SLEEPING HAD IT ON FOR 1-2 HRS WHEN SLEEPING. OTHERWISE ON 4L OF O2 WHEN AWAKE. PT STILL COUGHIN OUT WOLFF COLORED SPUTUM. MILD SOB WIHT EXERITON NOTED. HRR REMAINED AFIB MOSTLY 90-110'S CARDIZEM GTT OFF AT 1500 THEN PT STARTED TACHING UP AGAIN UP TO 140'S WHILE EATING DINNER. METOPROLOL IV PUSH 5MG GIVEN WITH NO EFFECT. MD MADE AWARE ORDER TO GIVE METOPROLOL BEDTIME DOSE NOW. NO OTHER ISSUES ENCOUNTERED FOR THE SHIFT. PT HAS BEEN EATING AND ASKING FOR SNACKS AND COFFEE T/O SHIFT PT EDUCATED ABOUT DIABETES DIET, SON BORUGHT IN SOME MORE SNACK AND CANDIES CBG WAS >300 BEFORE DINNER INSULIN GIVEN PER COVERAGE. PT HAS BEEN USING URINAL FOR VOIDING NO OTHE ISSUES ENCOUNTERED WILL REPORT TO ONCOMING SHIFT
[2024-01-01] MEDS ORDERED: Digoxin 0.25 MG/ML 2ML Amp IV ONE (21:10)
--- NOTE | 2024-01-01 21:34 | NUR ---
UPDATE PT HR CONTINUES TO BE ELEVATED IN THE 130-140'S WITH INTERITTENT TOUCHES INTO THE 150'S. DR. VUONG NOTIFIED WITH ORDERS FOR 1x DOSE OF IV DIGOXIN.
[2024-01-01] MEDS ORDERED: Benzonatate 100 MG Cap PO PRN (21:50)
[2024-01-01] MEDS ORDERED: Guaifenesin/Dextromethorphan Syrup 5 ML UDC PO PRN (21:50)
[2024-01-02] VITALS (7 sets, daily range): BP systolic 115–141; BP diastolic 75–94
[2024-01-02 04:24] LABS: Hematocrit 34.7 % (37.0-53.0); Hemoglobin 11.2 g/dL (13.5-17.5); Mean Corpuscular HGB 31.4 pg (26.0-34.0); Mean Corpuscular HGB Conc 32.3 g/dL (31.5-36.5); Mean Corpuscular Volume 97 fL (80-100); Mean Platelet Volume 9.5 fL (9.1-12.4); Platelet Count 255 K/mm3 (150-400); RDW Coefficient Variation 13.7 % (11.7-14.2); RDW Standard Deviation 49.2 fL (35.1-46.3); Red Blood Cell Count 3.57 M/mm3 (4.30-5.90); White Blood Cell Count 9.56 K/mm3 (4.00-11.30)
[2024-01-02 04:39] LABS: Albumin, Blood 3.2 g/dL (3.4-5.0); Anion Gap 9 mmol/L (3-11); Blood Urea Nitrogen 25 mg/dL (8-24); Bun/Creatinine Ratio 25.6 (12.0-20.0); CO2, Blood 29 mmol/L (21-32); Calcium, Blood 8.5 mg/dL (8.5-10.1); Chloride, Blood 103 mmol/L (98-108); Creatinine, Blood 0.98 mg/dL (0.60-1.20); Glomerular Filtration Rate 81 (60-); Glucose, Blood 268 mg/dL (70-99); Magnesium, Blood 2.6 mg/dL (1.6-2.4); Phosphorus, Blood 3.9 mg/dL (2.5-4.9); Potassium, Blood 4.2 mmol/L (3.5-5.5); Sodium, Blood 137 mmol/L (136-145)
--- NOTE | 2024-01-02 06:04 | NUR ---
SHIFT SUMMARY A/Ox4 AND COOPERATIVE WITH CARE. ANSWERS QUESTIONS APPROPRIATELY AND ABLE TO MAKE HIS NEEDS KNOWN. CARDIAC, REMAINS IN AFIB RANGING 110-120'S WITH NO REPORTS OF CP, PRESSURE OR DIZZINESS. AT SHIFT CHANGED, HR NOTED TO BE IN 130-140'S. SEE UPDATE NOTE FOR DETAILS. 1x LOPRESSOR IV GIVEN TO HELP MANAGE HR. RESPIRATORY, MAINTAINS SPO2 >90% ON 4LNC WITH SOME USE OF BiPAP WHEN ASLEEP. CONTINUES TO ENDORSE INTERMITTENT COUGH T/O THE NIGHT. PRN COUGH SUPRESSENT MEDICATIONS GIVEN PER EMAR. GI/, ABLE TO INDEPENDENTLY USE URINAL AT BEDSIDE WITH GOOD OUTPUT. 2xBM'S LAST NIGHT. NO NEW ORDERS AT THIS TIME, WILL REPORT TO ONCOMING RN. MICHAEL DE LOS SANTOS OF THIS NOTE.
[2024-01-02] MEDS ORDERED: Insulin NPH 10 Unit/0.1ML (Single Dose) SC ONE (08:00)
[2024-01-02] MEDS ORDERED: Insulin NPH 100 Unit / ML 10ML Vial SC ONE (08:25)
[2024-01-02] MEDS ORDERED: Lisinopril 5 MG Tab PO SCH (09:00)
[2024-01-02] MEDS ORDERED: ELIQUIS5 M2 PO (09:42)
[2024-01-02] MEDS ORDERED: METO100 PO (09:43)
[2024-01-02] MEDS ORDERED: TORS10 PO (09:43)
[2024-01-02] MEDS ORDERED: JARDIANCE10 MG PO (09:45)
--- NOTE | 2024-01-02 10:27 | NUR ---
AM NOTES; AMIO GTT STARTED THIS MORNING HRR REMAINS AFIB 130-140'S DESPITE METOPROL AND DIGOXIN PUSH THAT WAS GIVEN LAST NIGHT. SON AT THE BEDSIDE WAS GIVEN UPDATE REGARING PT'S STATUS ALSO EDUCATED ABOUT BRINGING IN SUGAR FREE CANDIES AND SNACKS. PT HAS A STASH OF REGULAR CANDIES AND CHOCOLATES IN HIS DRAWER. HUMULIN N 1OU WAS GIVEN ON TOP OF SLIDING SCALE THIS MORNING. PT HAS BEEN USING BSC INDEPENDENTLY D/T DIURESIS 1;1 SITTER STILL PRESENT D/T HIGH RISK SMOKER. NO OTHER ISSUES ENCOUNTERED WILL CONTINUE TO MONITOR
[2024-01-02 12:22] LABS: Base Excess Venous 6.2 mmol/L; Bicarbonate Venous 29.5 mmol/L (24.0-30.0); PCO2 Venous 41.4 mmHg (38-42); pH Blood Venous 7.47 (7.34-7.37)
[2024-01-02] MEDS ORDERED: Finasteride 5 MG Tab PO SCH (16:00)
[2024-01-02] MEDS ORDERED: Albuterol 2.5 MG/3 ML VIAL INH PRN (16:00)
[2024-01-02] MEDS ORDERED: Folic Acid 400 MCG TAB PO SCH (16:30)
[2024-01-02] MEDS ORDERED: Cyanocobalamin 500 MCG Tab PO SCH (16:30)
--- NOTE | 2024-01-02 17:58 | NUR ---
PT SUMMARY; SEE PREVIOUS NOTE. AMIO GTT NOW TITRATED DOWN TO 16MLS/HR. HRR STILL AFIB 90-120'S, SBP 120-140'S, SATS ABOVE 90% ON 2-3L OF O2 PT DID C/O SHORTNESS OF BREATH AFTER COUGHING SPITS PT WAS TITRATED TO 1L PER RT, O2 TITRATED BACK UP TO 3L. PT WORE BIPAP ONCE WHEN NAPPING. CBG HAS BEEN ELEVATED TO START LANTUS TONIGHT AT BEDTIME, HUMALOG PER COVERAGE ADMINISTERED. PT HAS BEEN VOIDING A LOT USES BSC, ALSO HAS 3-4 SMALL SOFT BM'S. PT HAS BEEN REQUESTING A LOT OF SNACKS AND DRINKS IN BETWEEN MEALS, PT RE-EDUCATED ABOUT DIABETIC DIET PT DOESNT SEEM TO RETAIN. PT WAS MEDICATED FOR COUGH TWICE FOR THE SHIFT. NO OTHER ISSUES ENCOUNTERED, 1;1 SITTER REMAINS AT THE BEDSIDE. WILL REPORT TO ONOMING SHIFT
[2024-01-02] MEDS ORDERED: Docusate Sodium 250 MG Cap PO SCH (21:00)
[2024-01-02] MEDS ORDERED: Insulin Glargine-Yfgn 100 Unit/mL 3 ML SYR SC SCH (21:00)
[2024-01-03 03:28] VITALS: BP 113/73
[2024-01-03 03:49] LABS: Hematocrit 35.3 % (37.0-53.0); Hemoglobin 11.3 g/dL (13.5-17.5); Mean Corpuscular HGB 30.7 pg (26.0-34.0); Mean Corpuscular Volume 96 fL (80-100); Mean Platelet Volume 9.5 fL (9.1-12.4); Platelet Count 248 K/mm3 (150-400); RDW Coefficient Variation 13.5 % (11.7-14.2); RDW Standard Deviation 47.6 fL (35.1-46.3); Red Blood Cell Count 3.68 M/mm3 (4.30-5.90); White Blood Cell Count 9.28 K/mm3 (4.00-11.30)
[2024-01-03 04:09] LABS: Albumin, Blood 3.2 g/dL (3.4-5.0); Anion Gap 8 mmol/L (3-11); Blood Urea Nitrogen 28 mg/dL (8-24); Bun/Creatinine Ratio 26.2 (12.0-20.0); CO2, Blood 30 mmol/L (21-32); Calcium, Blood 8.5 mg/dL (8.5-10.1); Chloride, Blood 102 mmol/L (98-108); Creatinine, Blood 1.07 mg/dL (0.60-1.20); Glomerular Filtration Rate 73 (60-); Glucose, Blood 206 mg/dL (70-99); Phosphorus, Blood 3.5 mg/dL (2.5-4.9); Potassium, Blood 3.9 mmol/L (3.5-5.5); Sodium, Blood 136 mmol/L (136-145)
[2024-01-03] MEDS ORDERED: Pantoprazole Sodium 20 MG Tab PO SCH (06:00)
[2024-01-03] MEDS ORDERED: Hyaluronidase 150 UNIT/ML Vial SC ONE (07:00)
--- NOTE | 2024-01-03 07:17 | NUR ---
SHIFT SUMMARY PATIENT ALERT AND ORIENTED X4. HAD NO COMPLAINTS OF PAIN. SOME SHORTNESS OF BREATH NOTED WITH EXERTION. ON 3 LITERS O2 VIA NC, SPO2 >90%. VITAL SIGNS STABLE, AFIB ON TELE. PATIENT CONTINUES ON AMIODARONE DRIP, UNFORTUNATELY IT INFILTRATED INTO HIS RIGHT FOREARM, NOTIFIED PHARMACIST AND DR BEARD, SEE ORDERS. WILL CONTINUE TO MONITOR. CALL LIGHT WITHIN REACH.
[2024-01-03 07:44] VITALS: BP 144/92
[2024-01-03] MEDS ORDERED: Tamsulosin HCl 0.4 MG Cap PO SCH (09:00)
[2024-01-03] MEDS ORDERED: Folic Acid 1 MG TAB PO SCH (09:00)
[2024-01-03] MEDS ORDERED: Spironolactone 25 MG Tab PO SCH (09:00)
[2024-01-03] MEDS ORDERED: Amiodarone HCl 200 MG Tab PO SCH (09:00)
[2024-01-03] MEDS ORDERED: Spironolactone 12.5 MG TAB PO SCH (09:00)
--- NOTE | 2024-01-03 09:50 | NUR ---
UPDATE PT [place]. A&O X4. VSS. SPO2 > 92% ON 3L NC WHICH PT IS UNSURE OF HOME O2 AMOUNT BEING 3L OR 4L NC. MONITOR SHOWING AFIB, HR 90s-110s UPON CARE ASSUMPTION WHILE SLEEPING. PT HR UP TO 120s ONCE AWAKE, THEN HR UP TO 140s WITH GETTING UP TO BSC. AMIO GTT INFUSING PER EMAR. PT REPORTING FREQUENT NEED FOR URINATION. PT VOIDING SMALL AMOUNTS AT A TIME. PT ENCOURAGED TO USE URINAL & REFRAIN FROM GETTING UP TO BSC D/T HR. PT W/ ACCIDENTAL REMOVAL OF PIV. PT REPORTS "I JUST ROLLED OVER & IT CAME OUT." IV SITE BLEEDING, GAUZE & COBAN APPLIED. NEW IV PLACED. PT APOLOGETIC. SITTER REMAINS AT BEDSIDE D/T REPORT OF PT SMOKING IN . PT REMINDED OF NO SMOKING ALLOWED. PT DENIES HAVING ANYTHING FURTHER TO SMOKE.
[2024-01-03 12:18] VITALS: BP 119/90
[2024-01-03 13:53] LABS: Adenovirus F 40/41 Not Detected (NOT DETECT); Astrovirus Not Detected (NOT DETECT); Campylobacter Sp Not Detected (NOT DETECT); Cryptosporidium Not Detected (NOT DETECT); Cyclospora Cayetanensis Not Detected (NOT DETECT); E. Coli O157 Not Detected (NOT DETECT); Entamoeba Histolytica Not Detected (NOT DETECT); Enteroaggregative E. coli-EAEC Not Detected (NOT DETECT); Enteropathogenic E. coli-EPEC Not Detected (NOT DETECT); Enterotoxigenic E. coli-ETEC Not Detected (NOT DETECT); Giardia Lamblia Not Detected (NOT DETECT); Norovirus GI/GII Not Detected (NOT DETECT); Plesiomonas Shigelloides Not Detected (NOT DETECT); Rotavirus A Not Detected (NOT DETECT); Salmonella Sp Not Detected (NOT DETECT); Sapovirus Not Detected (NOT DETECT); Shiga Toxin-prod E. coli-STEC Not Detected (NOT DETECT); Shigella/Enteroin E. coli-EIEC Not Detected (NOT DETECT); Vibrio Cholerae Not Detected (NOT DETECT); Vibrio Sp Not Detected (NOT DETECT); Yersinia Enterocolitica Not Detected (NOT DETECT)
[2024-01-03] MEDS ORDERED: AMIODARONE HCL400 M2 PO (15:23)
[2024-01-03] MEDS ORDERED: CEFP200 PO (15:24)
[2024-01-03] MEDS ORDERED: LISI5 PO (15:24)
[2024-01-03] MEDS ORDERED: PRED20 PO (15:25)
[2024-01-03] MEDS ORDERED: ALDACTONE25 MG PO (15:25)
--- NOTE | 2024-01-03 16:22 | NUR ---
DISCHARGE HOME PT REPORTING READINESS TO LEAVE. MD HODGES TO BEDSIDE FOR DISCUSSION W/ PT. THEN W/ ORDER FOR PT DISCHARGE HOME. [facility] DISCHARGE INSTRUCTIONS REVIEWED W/ PT. PIVs REMOVED. PT SMOKING ITEMS RETRIEVED FROM LOCKED BOX & RETURNED TO PT. PT TAKEN OUT BY WHEELCHAIR W/ BELONGINGS @ APPROX 1530.
[2024-01-03] MEDS ORDERED: Lactobacil 2-S.Thermo-Bifido 1 1 Cap PO SCH (21:00)
== END 2024-01-03 15:56 | disposition home or self-care (01) | DRG 291 ==
LOC: ER 12:25 → PCU 16:04
PROVIDERS: Emergency Medicine; Family Medicine; ADMIT Internal Medicine
DX: I11.0 Hypertensive heart disease with heart failure (principal); I50.23 Acute on chronic systolic (congestive) heart failure; J96.01 Acute respiratory failure with hypoxia; I48.91 Unspecified atrial fibrillation; N40.0 Benign prostatic hyperplasia without lower urinary tract symptoms; I25.10 Atherosclerotic heart disease of native coronary artery without angina pectoris; R19.7 Diarrhea, unspecified; E11.9 Type 2 diabetes mellitus without complications; K21.9 Gastro-esophageal reflux disease without esophagitis; F17.210 Nicotine dependence, cigarettes, uncomplicated; Z86.16 Personal history of COVID-19; Z95.5 Presence of coronary angioplasty implant and graft; Z79.51 Long term (current) use of inhaled steroids; Z79.4 Long term (current) use of insulin
CPT/HCPCS: 0241U; 36415; 71045; 80053; 80069; 82803; 82947; 83735; 83880; 84484; 85025; 85027; 87507; 93005; 93010; 94640; 94660; 94664; 94762; 96374; 96375; 99285-25; A9270; C9113; J0282; J0696; J1160; J1815; J1940; J2060; J2919; J3470; J7060; J7512

== ENCOUNTER 2024-03-06 09:45 | Day surgery (SDC) | payer OTHER ==
[~2024-03-06 09:45] MED LIST changes: +ALDACTONE25 MG PO; +AMIODARONE HCL400 M2 PO; +Balanced Salt Epinephrine Irrigation Solution 500 mL IR SCH; +CEFP200 PO; +ELIQUIS5 M2 PO; +JARDIANCE10 MG PO; +LISI5 PO; +Lidocaine HCl/Pf 1% 5 ML VIAL ONE; +Lidocaine HCl/Pf 1% 5 ML VIAL XX SCH; +METO100 PO; +Moxifloxacin HCL 0.5 MG/0.1 ML 0.4MLSYR LEFTEYE SCH; +NS 0 ML IV ONE; +PHENYLEPHRINE\\TROPICAMIDE\\TETRACAINE OPHTHALMIC DILATING SOLN LEFTEYE PRN; +PRED20 PO; +Povidone-Iodine 450 DROP/30 ML Solution LEFTEYE SCH; +TORS10 PO
--- NOTE | 2024-03-06 10:19 | NUR ---
03/06/24 1019 Shanell Hughes 1005: PATIENT NOTED TO BEEN SUSTAINING PULSE RATE OF 125-130. PATIENT DENIES SHORTNESS OF BREATH, CHEST PAIN, PALPITATIONS, OR OTHER ISSUES. 1010: THE ABOVE DISCUSSED WITH KIRSTIN CRUZ CRNA AND DR BURR. 1015: PER KIRSTIN, CASE CANCELLED.
[2024-03-06 10:20] VITALS: BP 128/84
== END 2024-03-06 10:28 | disposition home or self-care (01) ==
LOC: ORSCSDS 09:45
DX: H25.12 Age-related nuclear cataract, left eye (principal); Z53.9 Procedure and treatment not carried out, unspecified reason
CPT/HCPCS: J2001; J7040

== ENCOUNTER 2024-03-15 07:10 | Emergency (ER) | payer OTHER ==
[~2024-03-15] VITALS: Ht 182.9 cm; Wt 115.7 kg
[~2024-03-15 07:10] MED LIST changes: -Balanced Salt Epinephrine Irrigation Solution 500 mL IR SCH; -Lidocaine HCl/Pf 1% 5 ML VIAL ONE; -Lidocaine HCl/Pf 1% 5 ML VIAL XX SCH; -Moxifloxacin HCL 0.5 MG/0.1 ML 0.4MLSYR LEFTEYE SCH; -NS 0 ML IV ONE; -PHENYLEPHRINE\\TROPICAMIDE\\TETRACAINE OPHTHALMIC DILATING SOLN LEFTEYE PRN; -Povidone-Iodine 450 DROP/30 ML Solution LEFTEYE SCH
[2024-03-15] MEDS ORDERED: NS 1,000 ML IV SCH (07:30)
[2024-03-15] MEDS ORDERED: Albuterol 2.5 MG/3 ML VIAL INH SCH (07:30)
[2024-03-15 07:43] LABS: BASOPHILS ABSOLUTE AUTO 0.03 K/mm3 (0.00-0.23); BASOPHILS PERCENT AUTO 0 % (0-2); EOSINOPHILS ABSOLUTE AUTO 0.19 K/mm3 (0.00-0.68); EOSINOPHILS PERCENT AUTO 2 % (0-6); Hematocrit 42.2 % (37.0-53.0); Hemoglobin 13.5 g/dL (13.5-17.5); IMMATURE GRAN ABSOLUTE AUTO 0.03 K/mm3 (0.00-0.10); IMMATURE GRAN PERCENT AUTO 0 % (0-1); LYMPHOCYTES PERCENT AUTO 17 % (21-46); MONOCYTES ABSOLUTE AUTO 0.49 K/mm3 (0.16-1.47); MONOCYTES PERCENT AUTO 5 % (4-13); Mean Corpuscular HGB 29.5 pg (26.0-34.0); Mean Corpuscular Volume 92 fL (80-100); Mean Platelet Volume 10.2 fL (9.1-12.4); NEUTROPHILS ABSOLUTE AUTO 7.05 K/mm3 (1.96-9.15); NEUTROPHILS PERCENT AUTO 75 % (41-73); Platelet Count 240 K/mm3 (150-400); RDW Coefficient Variation 14.7 % (11.7-14.2); RDW Standard Deviation 49.1 fL (35.1-46.3); Red Blood Cell Count 4.58 M/mm3 (4.30-5.90); White Blood Cell Count 9.39 K/mm3 (4.00-11.30)
[2024-03-15 08:03] LABS: Albumin, Blood 3.8 g/dL (3.4-5.0); Bilirubin, Total 0.5 mg/dL (0.1-1.0); Bun/Creatinine Ratio 15.2 (12.0-20.0); Calcium, Blood 9.5 mg/dL (8.5-10.1); Creatinine, Blood 1.38 mg/dL (0.60-1.20); Globulin, Blood 3.8 g/dL (2.2-4.0); Potassium, Blood 4.8 mmol/L (3.5-5.5); Total Protein, Blood 7.6 g/dL (6.4-8.2)
[2024-03-15] MEDS ORDERED: Ipratropium/Albuterol SulF 2.5-0.5MG/3 ML Amp INH ONE (09:00)
[2024-03-15] MEDS ORDERED: Furosemide 10 MG/ML 4ML Vial IV ONE (09:05)
[2024-03-15] MEDS ORDERED: PRED20 PO (09:45)
[2024-03-15 09:58] VITALS: BP 130/92
== END 2024-03-15 09:55 | disposition home or self-care (01) ==
LOC: ER 07:10
PROVIDERS: Emergency Medicine
DX: J96.21 Acute and chronic respiratory failure with hypoxia (principal); J44.1 Chronic obstructive pulmonary disease with (acute) exacerbation; I48.91 Unspecified atrial fibrillation; I50.20 Unspecified systolic (congestive) heart failure; E11.9 Type 2 diabetes mellitus without complications; E78.5 Hyperlipidemia, unspecified; F17.210 Nicotine dependence, cigarettes, uncomplicated; Z79.52 Long term (current) use of systemic steroids; Z79.51 Long term (current) use of inhaled steroids; Z79.84 Long term (current) use of oral hypoglycemic drugs; Z79.4 Long term (current) use of insulin; Z79.899 Other long term (current) drug therapy; Z88.0 Allergy status to penicillin
CPT/HCPCS: 71045; 80053; 83880; 84484; 85025; 93005; 93010; 94640; 96361; 96374; 99285-25; J1940; J7030

== ENCOUNTER 2024-03-20 12:12 | Emergency (ER) | payer OTHER ==
[~2024-03-20] VITALS: Ht 182.9 cm; Wt 117.9 kg
[2024-03-20 12:32] LABS: Base Excess Venous 5.4 mmol/L; Bicarbonate Venous 28.6 mmol/L (24.0-30.0); PCO2 Venous 43.9 mmHg (38-42); pH Blood Venous 7.44 (7.34-7.37)
[2024-03-20 12:47] LABS: BASOPHILS ABSOLUTE AUTO 0.05 K/mm3 (0.00-0.23); BASOPHILS PERCENT AUTO 0 % (0-2); EOSINOPHILS ABSOLUTE AUTO 0.03 K/mm3 (0.00-0.68); EOSINOPHILS PERCENT AUTO 0 % (0-6); Hematocrit 41.8 % (37.0-53.0); Hemoglobin 13.6 g/dL (13.5-17.5); IMMATURE GRAN PERCENT AUTO 1 % (0-1); LYMPHOCYTES ABSOLUTE AUTO 2.79 K/mm3 (0.84-5.20); LYMPHOCYTES PERCENT AUTO 25 % (21-46); MONOCYTES ABSOLUTE AUTO 0.74 K/mm3 (0.16-1.47); MONOCYTES PERCENT AUTO 7 % (4-13); Mean Corpuscular HGB 29.8 pg (26.0-34.0); Mean Corpuscular HGB Conc 32.5 g/dL (31.5-36.5); Mean Corpuscular Volume 92 fL (80-100); Mean Platelet Volume 10.1 fL (9.1-12.4); NEUTROPHILS ABSOLUTE AUTO 7.49 K/mm3 (1.96-9.15); NEUTROPHILS PERCENT AUTO 67 % (41-73); Platelet Count 285 K/mm3 (150-400); RDW Coefficient Variation 14.8 % (11.7-14.2); RDW Standard Deviation 49.3 fL (35.1-46.3); Red Blood Cell Count 4.56 M/mm3 (4.30-5.90)
[2024-03-20 13:05] LABS: Albumin, Blood 3.8 g/dL (3.4-5.0); Albumin/Globulin Ratio 1.1 (0.8-1.8); Bilirubin, Total 0.5 mg/dL (0.1-1.0); Bun/Creatinine Ratio 17.4 (12.0-20.0); Calcium, Blood 9.4 mg/dL (8.5-10.1); Creatinine, Blood 1.21 mg/dL (0.60-1.20); Globulin, Blood 3.4 g/dL (2.2-4.0); Total Protein, Blood 7.2 g/dL (6.4-8.2)
[2024-03-20 15:15] VITALS: BP 122/84
== END 2024-03-20 15:03 ==
LOC: ER 12:12
PROVIDERS: Student in an Organized Health Care Education/Training Program
DX: J81.1 Chronic pulmonary edema (principal); E11.9 Type 2 diabetes mellitus without complications; E78.5 Hyperlipidemia, unspecified; J44.9 Chronic obstructive pulmonary disease, unspecified; I50.20 Unspecified systolic (congestive) heart failure; I48.91 Unspecified atrial fibrillation; F17.210 Nicotine dependence, cigarettes, uncomplicated; Z79.52 Long term (current) use of systemic steroids; Z79.4 Long term (current) use of insulin; Z79.51 Long term (current) use of inhaled steroids; Z79.84 Long term (current) use of oral hypoglycemic drugs; Z88.0 Allergy status to penicillin
CPT/HCPCS: 71045; 80053; 82803; 83880; 84484; 85025; 93005; 93010; 94660; 99285-25

== ENCOUNTER 2024-06-12 09:23 | Day surgery (SDC) | payer OTHER ==
[~2024-06-12] VITALS: Ht 188 cm; Wt 119.1 kg
[~2024-06-12 09:23] MED LIST changes: +Balanced Salt Epinephrine Irrigation Solution 500 mL IR SCH; +Lidocaine HCl/Pf 1% 5 ML VIAL XX SCH; +Moxifloxacin HCL 0.5 MG/0.1 ML 0.4MLSYR LEFTEYE SCH; +PHENYLEPHRINE\\TROPICAMIDE\\TETRACAINE OPHTHALMIC DILATING SOLN LEFTEYE PRN; +Povidone-Iodine 450 DROP/30 ML Solution LEFTEYE SCH; +Povidone-Iodine 450 DROP/30 ML Solution ONE; +Tetracaine HCl/Pf 0.5% Opth Soln 4 ml ONE
[2024-06-12] MEDS ORDERED: Tetracaine HCl 0.5% Opth Soln 15 ml LEFTEYE ONE (10:24)
[2024-06-12] MEDS ORDERED: Midazolam HCl 1MG / ML 2ML Vial ONE (10:30)
[2024-06-12] MEDS ORDERED: FentaNYL Citrate 50 MCG/ML 2 ML Injection ONE (10:31)
[2024-06-12 10:48] VITALS: BP 126/69
== END 2024-06-12 11:11 | disposition home or self-care (01) ==
LOC: ORSCSDS 09:23
PROVIDERS: Student in an Organized Health Care Education/Training Program
PROC: 08RK3JZ Replacement of Left Lens with Synthetic Substitute, Percutaneous Approach (ICD-10-PCS; principal; 2024-06-12 11:00)
DX: E11.36 Type 2 diabetes mellitus with diabetic cataract (principal); H25.812 Combined forms of age-related cataract, left eye; Z96.1 Presence of intraocular lens; J44.9 Chronic obstructive pulmonary disease, unspecified; G47.33 Obstructive sleep apnea (adult) (pediatric); I10 Essential (primary) hypertension; Z86.73 Personal history of transient ischemic attack (TIA), and cerebral infarction without residual deficits; J45.909 Unspecified asthma, uncomplicated; I48.91 Unspecified atrial fibrillation; I25.10 Atherosclerotic heart disease of native coronary artery without angina pectoris; E66.9 Obesity, unspecified; Z68.33 Body mass index [BMI] 33.0-33.9, adult; Z79.4 Long term (current) use of insulin; Z79.84 Long term (current) use of oral hypoglycemic drugs; Z79.899 Other long term (current) drug therapy; Z79.01 Long term (current) use of anticoagulants; Z87.891 Personal history of nicotine dependence
CPT/HCPCS: 82947; J2250; J3010; V2632

== ENCOUNTER 2025-05-14 12:45 | Emergency (ER) | payer OTHER ==
[~2025-05-14] VITALS: Ht 188 cm; Wt 120.2 kg
[~2025-05-14 12:45] MED LIST changes: -Balanced Salt Epinephrine Irrigation Solution 500 mL IR SCH; -Lidocaine HCl/Pf 1% 5 ML VIAL XX SCH; -Moxifloxacin HCL 0.5 MG/0.1 ML 0.4MLSYR LEFTEYE SCH; -PHENYLEPHRINE\\TROPICAMIDE\\TETRACAINE OPHTHALMIC DILATING SOLN LEFTEYE PRN; -Povidone-Iodine 450 DROP/30 ML Solution LEFTEYE SCH; -Povidone-Iodine 450 DROP/30 ML Solution ONE; -Tetracaine HCl/Pf 0.5% Opth Soln 4 ml ONE
[2025-05-14 13:03] VITALS: BP 118/65
[2025-05-14] MEDS ORDERED: Ketorolac Tromethamine 15mg Vial IM ONE (13:10)
[2025-05-14] MEDS ORDERED: CEPH500 PO (14:22)
== END 2025-05-14 14:47 | disposition home or self-care (01) ==
LOC: ER 12:45
DX: L03.116 Cellulitis of left lower limb (principal); E78.5 Hyperlipidemia, unspecified; I25.10 Atherosclerotic heart disease of native coronary artery without angina pectoris; E11.9 Type 2 diabetes mellitus without complications; J44.9 Chronic obstructive pulmonary disease, unspecified; I50.20 Unspecified systolic (congestive) heart failure; I48.91 Unspecified atrial fibrillation; F17.210 Nicotine dependence, cigarettes, uncomplicated; Z99.81 Dependence on supplemental oxygen; Z88.0 Allergy status to penicillin; Z79.84 Long term (current) use of oral hypoglycemic drugs; Z79.4 Long term (current) use of insulin; Z79.51 Long term (current) use of inhaled steroids; Z79.01 Long term (current) use of anticoagulants; Z79.899 Other long term (current) drug therapy; Z59.89 Other problems related to housing and economic circumstances
CPT/HCPCS: 73630; 96372; 99283-25; A9270; J1885